=== PATIENT | male | born 1970 | race Caucasian/White ===

== ENCOUNTER 2017-05-16 21:23 | Emergency (ER) | payer BC ==
[~2017-05-16] VITALS: Ht 157.5 cm; Wt 97.7 kg
[~2017-05-16 21:23] MED LIST: CARV3 PO; MECL-111 PO
[2017-05-16] MEDS ORDERED: METF500T4 PO (21:28)
[2017-05-16 21:37] LABS: GLUCOSE,POINT OF CARE 90 MG/DL (70-110)
[2017-05-16] MEDS ORDERED: LISI-662 PO (21:44)
[2017-05-16 22:03] LABS: BASOPHILS # (AUTO) 0.07 K/uL (0.00-0.20); BASOPHILS % (AUTO) 1.1 % (0.0-2.0); EOSINOPHILS # (AUTO) 0.46 K/uL (0.00-0.70); HEMATOCRIT 49.2 % (41-53); HEMOGLOBIN 16.3 g/dL (13.5-17.5); LYMPHOCYTES % (AUTO) 30.6 % (22.0-44.0); MEAN CORPUSCULAR HGB CONC 33.1 G/dL (31.0-37.0); MEAN CORPUSCULAR VOLUME 91 fL (80-100); MONOCYTES # (AUTO) 0.6 K/uL (0.1-1.0); MONOCYTES % (AUTO) 8.6 % (2.0-9.0); NEUTROPHILS # (AUTO) 3.5 K/uL (1.8-7.7); NEUTROPHILS % (AUTO) 52.8 % (40.0-70.0); PLATELET COUNT (AUTO) 218 K/uL (150-450); RED BLOOD CELL COUNT(AUTO) 5.43 MIL/uL (4.50-5.90); RED CELL DISTRIBUTION WIDTH 13.4 % (11.5-14.5); WHITE BLOOD COUNT (AUTO) 6.6 K/uL (4.5-11.0)
[2017-05-16 22:19] LABS: ANION GAP 7 mmol/L (8-16); CALCIUM, TOTAL 8.9 mg/dL (8.8-10.5); CARBON DIOXIDE 27 mmol/L (22-29); CHLORIDE 100 mmol/L (98-107); CREATININE 0.93 mg/dL (0.60-1.30); GLOMERULAR FILTR. RATE CALC > 60 mL/min (>60); POTASSIUM 4.1 mmol/L (3.5-5.1); SODIUM SERUM 134 mmol/L (136-145); UREA NITROGEN, BLOOD 13 mg/dL (7-18)
[2017-05-16 22:34] LABS: ALANINE AMINOTRANSFERASE 42 U/L (12-78); ALBUMIN 4.3 g/dL (3.4-5.0); ASPARTATE AMINOTRANSFERASE 34 U/L (15-37); BILIRUBIN,TOTAL 0.9 mg/dL (0.1-1.0); TOTAL PROTEIN, SERUM 8.3 g/dL (6.4-8.2)
[2017-05-16] MEDS ORDERED: LISINOPRIL 10 MG TABLET PO ONE (23:30)
[2017-05-17 00:09] VITALS: BP 161/93
== END 2017-05-17 00:11 | disposition home or self-care (01) ==
LOC: EMS 21:25
DX: R07.9 Chest pain, unspecified (principal); I10 Essential (primary) hypertension; E11.9 Type 2 diabetes mellitus without complications; E78.00 Pure hypercholesterolemia, unspecified
CPT/HCPCS: 82962; 93005; 99285